=== PATIENT | female | born 2000 | race Caucasian/White ===

== ENCOUNTER 2019-04-08 17:54 | Inpatient (IN) | payer OTHER ==
[2019-04-08] MEDS ORDERED: Promethazine HCl 25 MG/ML VIAL IM PRN (18:19)
[2019-04-08] MEDS ORDERED: Lidocaine 1% (PF) 30 ML VIAL SC PRN ×2 (18:19→19:44)
[2019-04-08] MEDS ORDERED: Butorphanol Tartrate 1 MG/ML VIAL SLOW IVP PRN (18:19)
[2019-04-08] MEDS ORDERED: Misoprostol 200 MCG TAB PR PRN (18:19)
[2019-04-08] MEDS ORDERED: Ibuprofen 800 MG TAB PO PRN (18:19)
[2019-04-08] MEDS ORDERED: Ondansetron PF 4 MG/2 ML Vial IVP PRN (18:19)
[2019-04-08] MEDS ORDERED: hydrALAZINE 20 MG/ML VIAL SLOW IVP PRN (18:19)
[2019-04-08] MEDS ORDERED: NS w/ Oxytocin 10 units 500 ML IV SCH (18:19)
[2019-04-08] MEDS ORDERED: Acetaminophen 500 MG TAB PO PRN (18:19)
[2019-04-08] MEDS ORDERED: NS / Oxytocin 40 units/1000ml 1,000 ML IV PRN ×2 (18:19→19:44)
[2019-04-08] MEDS ORDERED: HYDROcodone/Acetaminophen 5/325 mg Tablet PO PRN (18:19)
[2019-04-08] MEDS ORDERED: Carboprost 250 MCG/ML AMP IM PRN (18:19)
[2019-04-08] MEDS ORDERED: Zolpidem Tartrate 5 MG TAB PO PRN (18:19)
[2019-04-08] MEDS ORDERED: Diphenoxylate HCl/Atropine Tablet PO PRN (18:19)
[2019-04-08 18:42] VITALS: BMI 25.0
[2019-04-08] MEDS: Lactated Ringer's 1,000 ML IV SCH (18:45)
[2019-04-08 18:59] LABS: Hemoglobin 11.4 g/dL (12.0-16.0); Mean Corpuscular HGB CONC 34.2 g/dL (32.0-36.0); Mean Corpuscular Hemoglobin 28.7 pg (25.0-35.0); Mean Corpuscular Volume 83.8 fL (78.0-98.0); Mean Platelet Volume 9.9 fL (7.4-10.4); Platelet Count 179 thou/uL (130-400); RBC Distribution Width 13.9 % (11.5-14.5); Red Blood Cell (RBC) Count 3.96 mill/uL (4.00-5.20); White Blood Cell (WBC) Count 7.5 thou/uL (4.8-10.8)
[2019-04-08 19:31] LABS: HBSAg Index 0.14 S/CO (0-0.99); Hep B Surf Ag Non-Reactive S/CO (NonReactive)
[2019-04-08 19:32] LABS: Syphilis Antibody Nonreactive (Nonreactive); Syphilis Antibody Index 0.06 S/CO (<1.00 Non-Reactive)
[2019-04-08] MEDS ORDERED: Azithromycin 500 MG VIAL ONE (19:48)
[2019-04-08] MEDS: Misoprostol 100 MCG TAB VAG SCH (19:53)
[2019-04-08] MEDS ORDERED: Penicillin G Potassium 5 MILL.UNITS in Sodium Chloride 0.9% 100 ML IVPB SCH (20:00)
[2019-04-08] MEDS ORDERED: Azithromycin 500 MG in Sodium Chloride 0.9% 250 ML 250 ML IVPB SCH (20:00)
[2019-04-08] MEDS ORDERED: Nicotine 14 MG PATCH TOP PRN (20:19)
[2019-04-09] MEDS ORDERED: Fentanyl 4 mcg/Bup 0.1% Cadd 100 ML ONE (00:12)
[2019-04-09] MEDS ORDERED: Lidocaine 1.5%/Epinephrine 1:200,000 5 ML AMPUL IJ ONE (00:29)
[2019-04-09] MEDS: Penicillin G 2.5 MILL.units 2.5 MILL.UNITS in Premix Bag 1 BAG IVPB SCH ×2 (01:06→19:34)
[2019-04-09] MEDS ORDERED: Naloxone HCl 0.4 mg/ml Vial IVP PRN ×2 (02:03)
[2019-04-09] MEDS ORDERED: Promethazine HCl 25 MG/ML VIAL IM PRN (02:03)
[2019-04-09] MEDS ORDERED: ePHEDrine/0.9% NaCl/PF SYRINGE 50 mg/10 ml SLOW IVP PRN (02:03)
[2019-04-09] MEDS ORDERED: Acetaminophen 325 MG TAB PO PRN (02:03)
[2019-04-09] MEDS ORDERED: Ondansetron PF 4 MG/2 ML Vial IVP PRN (02:03)
[2019-04-09] MEDS ORDERED: Lactated Ringer's 500 ML IV PRN (02:03)
[2019-04-09] MEDS ORDERED: diphenhydrAMINE 50 MG/ML VIAL IVP PRN (02:03)
[2019-04-09] MEDS ORDERED: Fentanyl 4 mcg/Bupivacaine 0.1% Cassette 100 ML EPIDURAL SCH (02:15)
[2019-04-09] MEDS ORDERED: Communication Order-Pharmacy FS SCH (02:15)
--- NOTE | 2019-04-09 03:00 | PDOC.OPDEL ---
OB Operative/Delivery Note Delivery Dr/Surgeon: Rolf Pre-Delivery Diagnosis: medically indicated induction Procedure/Post Delivery Dx: spontaneous vaginal delivery Weeks gestation: 38 Anesthesia: epidural - Additional Findings/Plan Placenta delivered: manual removal Repaired Obstetrical Laceration: none Estimated blood loss: 100ml Post delivery plan: routine recovery (Tight nuchal cord x 1)
[2019-04-09] MEDS ORDERED: hydrALAZINE 20 MG/ML VIAL SLOW IVP PRN (03:01)
[2019-04-09] MEDS ORDERED: Milk Of Magnesia 30 ML UDCUP PO PRN (03:01)
[2019-04-09] MEDS ORDERED: Benzocaine-Menthol 82.5 ML CAN TOP PRN (03:01)
[2019-04-09] MEDS ORDERED: Bisacodyl 10 MG SUPP PR PRN (03:01)
[2019-04-09] MEDS ORDERED: NS / Oxytocin 40 units/1000ml 1,000 ML IV SCH (03:15)
[2019-04-09] MEDS: Ibuprofen 800 MG TAB PO SCH ×3 (06:04→21:52)
[2019-04-09] MEDS ORDERED: Adacel (T-DAP) 0.5 ML SYRINGE IM ONE (09:00)
[2019-04-09] MEDS: Ferrous Sulfate 325 MG TAB PO SCH ×2 (10:18→16:48)
[2019-04-09] MEDS: Docusate Calcium (SURFAK) 240 MG CAP PO SCH ×2 (10:18→21:52)
[2019-04-09] MEDS: traMADol HCl 50 MG TAB PO PRN ×2 (15:17→21:50)
[2019-04-09] MEDS: Misoprostol 100 MCG TAB VAG SCH ×2 (19:32→19:33)
[2019-04-09] MEDS: Lactated Ringer's 1,000 ML IV SCH (19:33)
[2019-04-10] MEDS ORDERED: Acetaminophen 500 MG TAB PO PRN (00:38)
[2019-04-10] MEDS ORDERED: Zolpidem Tartrate 5 MG TAB PO SCH (00:45)
--- NOTE | 2019-04-10 01:06 | PDOC.EVN ---
Event Note - Event Note Event Note: called to room for pain. pt has been given ibuprofen 800 and tramadol 50mg this evening and is reporting pelvic pains. When discussing the pain she reports that she doesnt get very strong pains with menstruation and it is a little more than that. She reports the pain comes after pumping while feeding her baby. She urinated shortly before i came to the room. vital signs reviewed and normal. bladder scanner shows an empty bladder pmh sig for bipolar, depression, anxiety PT self dc'd zoloft 100mg daily a couple weeks ago Pt is likely experiencing normal post delivery cramping. I have added tylenol 1g now and 5 ambien. Nursing staff to call if pt still uncomfortable enough to be awake.
[2019-04-10] MEDS: Ibuprofen 800 MG TAB PO SCH ×2 (05:24→14:19)
[2019-04-10] MEDS: Ferrous Sulfate 325 MG TAB PO SCH (07:22)
--- NOTE | 2019-04-10 07:27 | PDOC.PP ---
Post Progress Note Post Day #: 1-2 PO intake tolerated: yes Flatus: yes Ambulation: yes Vital Signs (12 hours) Temp Pulse Resp BP Pulse Ox 04/10/19 00:07 97.6 F 84 16 118/65 98 04/09/19 19:55 97.6 F 91 16 124/73 98 Weight Weight 179 lb Result Diagrams: 04/08/19 18:34 Additional Labs: Post Labs Blood Type O POSITIVE 04/08/19 19:18 Hep Bs Antigen Non-Reactive S/CO (NonReactive) 04/08/19 18:34 - Assessment/Plan Post day 1-2. Doing well. D/c home today F/u 6 weeks. rx for tramadol and zoloft given...otc ibuprofen...
[2019-04-10] MEDS: Docusate Calcium (SURFAK) 240 MG CAP PO SCH (08:16)
[2019-04-10] MEDS: traMADol HCl 50 MG TAB PO PRN (08:18)
[2019-04-10 08:23] VITALS: BP 114/69; TEMP 97.7
== END 2019-04-10 14:20 | disposition home or self-care (01) | DRG 807 ==
LOC: L&D 17:54 → 3SW 04-09 04:59
PROVIDERS: ADMIT Obstetrics & Gynecology; ATTEND Obstetrics & Gynecology
PROC: 10E0XZZ Delivery of Products of Conception, External Approach (ICD-10-PCS; principal; 2019-04-09)
DX: O69.1XX0 Labor and delivery complicated by cord around neck, with compression, not applicable or unspecified (principal); Z37.0 Single live birth; Z3A.38 38 weeks gestation of pregnancy; O99.344 Other mental disorders complicating childbirth; F32.9 Major depressive disorder, single episode, unspecified; F31.9 Bipolar disorder, unspecified; F41.9 Anxiety disorder, unspecified
CPT/HCPCS: 36415; 51702; 85027; 86780; 86850; 86900; 86901; 87340; 88307; J0456; J2405; J2540; J3490; J7050